=== PATIENT | male | born 1970 | race Caucasian/White ===

== ENCOUNTER 2020-02-26 16:35 | Emergency (ER) | payer BC ==
[~2020-02-26] VITALS: Ht 175.3 cm; Wt 70.8 kg
--- NOTE | 2020-02-26 17:37 | Diagnostic Imaging Report ---
PELVIS PA AND LATERAL 2 views HISTORY: Possible rectal foreign body. COMPARISON: None available. FINDINGS: Bones: No acute displaced fracture. Osseous alignment is within normal limits. Joints: The joint spaces are well-maintained. Soft tissues: There is a battery operated device projected on the pelvis extending to left lower quadrant, estimated at 26 cm in length compatible with suspected foreign body. Multiple phleboliths projected on the pelvis. IMPRESSION: Large foreign body projected on the pelvis as detailed above. Signed by: Dr. Chelsi Joshi M.D. on 02/26/2020 5:33 PM
--- NOTE | 2020-02-26 18:00 | NUR ---
FOREIGN BODY REMOVED FROM RECTUM PER DR. RIVERA
== END 2020-02-26 18:37 | disposition home or self-care (01) ==
LOC: ER 16:35
DX: T18.5XXA Foreign body in anus and rectum, initial encounter (principal); Z83.3 Family history of diabetes mellitus; Z82.49 Family history of ischemic heart disease and other diseases of the circulatory system
CPT/HCPCS: 72170; 99283